=== PATIENT | female | born 1940 | race Caucasian/White ===

== ENCOUNTER 2017-11-13 14:53 | Outpatient (CLI) | payer MEDICARE | END 2017-11-13 14:54 | disposition home or self-care (01) | LOC: BICMAMMO 14:53 | PROVIDERS: ATTEND Family Medicine | DX: Z12.31 Encounter for screening mammogram for malignant neoplasm of breast (principal) | CPT/HCPCS: 77063; 77067 ==

== ENCOUNTER 2020-01-09 02:00 | Emergency (ER) | payer MEDICARE ==
--- NOTE | 2020-01-09 09:40 | RAD ---
RIGHT KNEE 4 VIEWS: Date: 01/09/2020 HISTORY: Injury, right knee pain. FINDINGS/IMPRESSION: Degenerative changes are present. No acute fracture or dislocation is identified. A joint effusion is present. POS: [facility]NA
== END 2020-01-09 03:10 | disposition home or self-care (01) ==
LOC: ERS 02:00
DX: M25.461 Effusion, right knee (principal); Z86.73 Personal history of transient ischemic attack (TIA), and cerebral infarction without residual deficits

== ENCOUNTER 2021-11-09 11:45 | Outpatient (CLI) | payer MEDICARE | END 2021-11-09 11:46 | disposition home or self-care (01) | LOC: BICMAMMO 11:45 | PROVIDERS: ATTEND Family Medicine | DX: Z12.31 Encounter for screening mammogram for malignant neoplasm of breast (principal) | CPT/HCPCS: 77063; 77067 ==